=== PATIENT | female | born 1980 ===

== ENCOUNTER 2018-12-23 18:45 | Emergency (ER) | payer BC ==
[~2018-12-23] VITALS: Ht 157.5 cm; Wt 77.3 kg
[2018-12-23 18:56] VITALS: BP 139/69; TEMP 97
[2018-12-23 19:31] LABS: COLLECTION METHOD CLEAN CATCH
[2018-12-23 19:50] LABS: MUCOUS Present /lpf; PH 7 (5-8); URINE APPEARANCE Hazy; URINE BACTERIA None Seen /hpf; URINE BILIRUBIN Negative (NEGATIVE); URINE BLOOD 3+ (NEGATIVE); URINE COLOR Yellow; URINE GLUCOSE Negative (NEGATIVE); URINE KETONE Negative (NEGATIVE); URINE LEUKOCYTE ESTERASE Negative (NEGATIVE); URINE NITRATE Negative (NEGATIVE); URINE PROTEIN(semi-quant) Negative (NEGATIVE); URINE RBC >50 /hpf; URINE UROBILINOGEN Negative (NEGATIVE)
[2018-12-23] MEDS ORDERED: VALTREX1 GM PO (20:11)
[2018-12-23 20:46] VITALS: PULSE 75
== END 2018-12-23 20:54 | disposition home or self-care (01) ==
LOC: COL.ER 18:45
PROVIDERS: Emergency Medicine
DX: A60.00 Herpesviral infection of urogenital system, unspecified (principal)

== ENCOUNTER 2019-12-11 15:04 | Emergency (ER) | payer BC ==
[~2019-12-11] VITALS: Ht 157.5 cm; Wt 81.8 kg
[~2019-12-11 15:04] MED LIST: VALTREX1 GM PO
[2019-12-11 15:16] VITALS: TEMP 98.2
[2019-12-11 15:53] LABS: BASO # 0.1 (0.0-0.2); BASO % 1.1 % (0.0-2.0); EOS # 0.3 (0.0-0.7); EOS % 3.1 % (0-4.0); GRAN # 4.7 (1.4-6.5); GRAN % 53.7 % (42.2-75.2); HEMOGLOBIN 16.1 g/dl (12.5-16.0); LYMPH # 3.2 (1.2-3.4); LYMPH % 36.3 % (20.0-51.0); MEAN CELL VOLUME 87 fl (80.0-100.0); MEAN CORPUSCULAR HEMOGLOBIN 30 pg (27.0-31.0); MEAN CORPUSCULAR HGB CONC 34 g/dl (33.0-37.0); MONO # 0.5 (0.1-0.6); MONO % 5.5 % (1.7-9.3); PLATELET COUNT 270 K/mm3 (130-400); RED BLOOD COUNT 5.38 M/mm3 (4.10-5.30); REDCELL DISTRIBUTION WIDTH-CV 12.3 % (11.5-14.5)
[2019-12-11 16:32] LABS: TROPONIN-I < 0.012 ng/mL (0.000-0.035)
[2019-12-11 16:45] LABS: ALBUMIN 4.5 gm/dL (3.5-5.0); BILIRUBIN,TOTAL 0.6 mg/dL (0.0-1.0); CALCIUM 9.9 mg/dL (8.4-10.2); CREATININE, serum 0.54 (0.52-1.25); TOTAL PROTEIN 7.4 gm/dL (6.4-8.2)
[2019-12-11] MEDS ORDERED: NAPROXEN 3375 MG/TAB PO (18:29)
[2019-12-11] MEDS ORDERED: NEXIUM 20MG20 MG PO (18:29)
[2019-12-11 18:45] VITALS: BP 117/73; PULSE 75
[2019-12-11 20:37] LABS: PROTHROMBIN TIME 11.1 SECONDS (9.7-12.8)
== END 2019-12-11 18:45 | disposition home or self-care (01) ==
LOC: COL.ER 15:04
PROVIDERS: Emergency Medicine
DX: M54.12 Radiculopathy, cervical region (principal); R23.3 Spontaneous ecchymoses; R10.13 Epigastric pain
CPT/HCPCS: J1885; J2405; J7030